=== PATIENT | female | born 1975 | race African-American/Black ===

== ENCOUNTER 2017-01-28 18:06 | Emergency (ER) | payer BC ==
[2017-01-28 18:16] VITALS: BP 185/98
[2017-01-28] MEDS ORDERED: DEXAMETHASONE 4 MG TABLET PO ONE (19:40)
[2017-01-28] MEDS ORDERED: FAMOTIDINE 20 MG TABLET PO ONE (19:40)
[2017-01-28] MEDS ORDERED: CLINDAMYCIN HCL 150 MG CAPSULE PO ONE (19:40)
[2017-01-28] MEDS ORDERED: ACETAMINOPHEN 325 MG TABLET PO ONE (19:43)
--- NOTE | 2017-01-28 19:44 | ER Document Report ---
HPI - HPI Patient complains to provider of: Insect bite Onset: Yesterday Onset/Duration: Worse Quality of pain: Achy Pain Level: 3 Context: Patient states that she was stung by an insect yesterday to the right forearm. Patient states area was just mildly red yesterday. Patient states gradually today arm has become slightly swollen with increased redness. Patient complains of itching to right forearm. Patient denies any fever. Patient states she does have a history of high blood pressure but her doctor had to adjust her medication so much that she stopped taking them and has been treating with homeopathic treatments at this time. Associated Symptoms: Other - Right forearm redness and swelling. denies: Nonproductive cough, Fever, Headache Exacerbated by: Denies Relieved by: Denies Similar symptoms previously: No Recently seen / treated by doctor: No - ROS ROS below otherwise negative: Yes Systems Reviewed and Negative: Yes All other systems reviewed and negative - CONSTITUTIONAL Constitutional: DENIES: Fever, Chills - NEURO Neurology: DENIES: Headache - CARDIOVASCULAR Cardiovascular: DENIES: Chest pain - RESPIRATORY Respiratory: DENIES: Trouble Breathing, Coughing - GASTROINTESTINAL Gastrointestinal: DENIES: Nausea - REPRODUCTIVE Reproductive: DENIES: : - MUSCULOSKELETAL Musculoskeletal: REPORTS: Extremity pain, Swelling - DERM Skin Color: Erythema Notes: Insect bite Past Medical History - General Information source: Patient - Social History Smoking Status: Never Smoker Frequency of alcohol use: None Drug Abuse: None Occupation: None Family History: None - Past Medical History Cardiac Medical History: Reports: Hx Hypertension Neurological Medical History: Reports: Hx Migraine Renal/ Medical History: Denies: Hx Peritoneal Dialysis Past Surgical History: Reports: Hx Section - x 3, Hx Orthopedic Surgery - back surgery-rods in back, Hx Tubal Ligation - Immunizations Hx Diphtheria, Pertussis, Tetanus Vaccination: Yes Vertical Provider Document - CONSTITUTIONAL Agree With Documented VS: Yes Exam Limitations: No Limitations General Appearance: WD/WN, No Apparent Distress - INFECTION CONTROL TRAVEL OUTSIDE OF THE [place] IN LAST 30 DAYS: No - HEENT HEENT: Atraumatic, Normal ENT Exam, Normocephalic Notes: No angioedema - NECK Neck: Normal Inspection, Supple. negative: Lymphadenopathy-Left, Lymphadenopathy-Right - RESPIRATORY Respiratory: Breath Sounds Normal, No Respiratory Distress O2 Sat by Pulse Oximetry: 99 - CARDIOVASCULAR Cardiovascular: Regular Rate, Regular Rhythm, No Murmur Pulses: Normal: Radial - BACK Back: Normal Inspection - MUSCULOSKELETAL/EXTREMETIES Musculoskeletal/Extremeties: MAEW, Edema - Right forearm swelling with erythema surrounding insect bite - NEURO Level of Consciousness: Awake, Alert, Appropriate Motor/Sensory: No Motor Deficit - DERM Integumentary: Warm, Dry. negative: Abscess Adult Front & Back Diagram: 1 - Patient with consistent with insect bite surrounded by erythema, no drainable abscess Course - Re-evaluation Re-evalutation: 01/28/17 19:45 The patient has been informed that they may have pre-hypertension or hypertension based on a blood pressure reading in the emergency department. I recommend that patient call the primary care provider listed on their discharge instructions or a physician of their choice by this week to arrange follow-up for further evaluation of possible pre-hypertension or hypertension. 01/28/17 19:53 Area of erythema marked with a skin marker, patient advised to return for any increased redness, pain, fever concerning new symptoms - Vital Signs Vital signs: Temp Pulse Resp BP Pulse Ox 99.4 F 107 H 24 H 185/98 H 99 01/28/17 18:15 01/28/17 18:15 01/28/17 18:15 01/28/17 18:15 01/28/17 18:15 Discharge - Discharge Clinical Impression: Hx of essential hypertension Insect bite Qualifiers: Encounter type: initial encounter Qualified Code(s): W57.XXXA - Bitten or stung by nonvenomous insect and other nonvenomous arthropods, initial encounter Cellulitis Qualifiers: Site of cellulitis: extremity Site of cellulitis of extremity: upper extremity Laterality: right Qualified Code(s): L03.113 - Cellulitis of right upper limb Condition: Stable Instructions: Clindamycin ([facility]), Use of Diphenhydramine, Steroid Medication, Swollen Insect Bite or Sting ([facility]) Additional Instructions: Return immediately for any new or worsening symptoms Followup with your primary care provider, call tomorrow to make a followup appointment. Your primary doctor may need to adjust your blood pressure medications, call tomorrow for an appointment You may continue to take Benadryl [id number] to help with your itching Return for any increased redness, fever, increased swelling, or any concerning symptoms Prescriptions: Clindamycin HCl [Cleocin Hcl] 300 mg PO QID #28 capsule Famotidine [Pepcid 20 mg Tablet] 20 mg PO BID #12 tablet Forms: Elevated Blood Pressure Referrals: [facility] [Provider Group] - Follow up tomorrow
== END 2017-01-28 19:55 | disposition home or self-care (01) ==
LOC: ER 18:06
DX: S50.861A Insect bite (nonvenomous) of right forearm, initial encounter (principal); L03.113 Cellulitis of right upper limb; W57.XXXA Bitten or stung by nonvenomous insect and other nonvenomous arthropods, initial encounter; I10 Essential (primary) hypertension
CPT/HCPCS: 99283

== ENCOUNTER 2017-04-16 14:23 | Emergency (ER) | payer BC ==
[2017-04-16 16:00] LABS: ABSOLUTE BASOPHILS # (AUTO) 0.1 10^3/uL (0.0-0.2); ABSOLUTE EOSINOPHILS # (AUTO) 0.1 10^3/uL (0.0-0.6); ABSOLUTE LYMPHOCYTES (AUTO) 2.3 10^3/uL (0.5-4.7); ABSOLUTE MONOCYTES (AUTO) 0.5 10^3/uL (0.1-1.4); ABSOLUTE NEUT (AUTO) 3.8 10^3/uL (1.7-8.2); BASOPHILS % (AUTO) 1.2 % (0-2); EOSINOPHILS % (AUTO) 1.8 % (0-6); HEMATOCRIT 37.5 % (36.0-47.0); HEMOGLOBIN 12.2 g/dL (12.0-15.5); HGB HCT DIFFERENCE -0.9; LYMPHOCYTES % (AUTO) 33.6 % (13-45); MEAN CORPUSCULAR HEMOGLOBIN 26.9 pg (27.0-33.4); MEAN CORPUSCULAR HGB CONC 32.4 g/dL (32.0-36.0); MEAN CORPUSCULAR VOLUME 83 fl (80-97); MONOCYTES % (AUTO) 7.7 % (3-13); RED BLOOD COUNT 4.52 10^6/uL (3.72-5.28); RED CELL DISTRIBUTION WIDTH 14.7 % (11.5-14.0); SEGMENTED NEUTROPHILS % (AUTO) 55.7 % (42-78); WHITE BLOOD COUNT 6.9 10^3/uL (4.0-10.5)
[2017-04-16 16:06] LABS: PROTHROMBIN TIME 13.2 SEC (11.4-15.4)
[2017-04-16 16:07] LABS: PARTIAL THROMBOPLASTIN TIME 27.6 SEC (23.5-35.8)
[2017-04-16 16:18] LABS: ANION GAP 11 (5-19); BLOOD UREA NITROGEN 6 mg/dL (7-20); CALCIUM 9.8 mg/dL (8.4-10.2); CARBON DIOXIDE 29 mmol/L (22-30); CHLORIDE 103 mmol/L (98-107); CREATININE RESULT 0.58 mg/dL (0.52-1.25); GLUCOSE 92 mg/dL (75-110); POTASSIUM 4.9 mmol/L (3.6-5.0); SODIUM 143.2 mmol/L (137-145)
--- NOTE | 2017-04-16 17:42 | RADIOLOGY REPORT (SQ) ---
EXAM DESCRIPTION: U/S NON-OB PELVIS TV W/O DOP COMPLETED DATE/TIME: 04/16/2017 5:29 pm REASON FOR STUDY: heavy bleeding COMPARISON: None. TECHNIQUE: Dynamic and static grayscale images acquired of the pelvis via transvaginal approach and recorded on PACS. Additional selected color Doppler and spectral images recorded. LIMITATIONS: None. FINDINGS: UTERUS: The uterus appears enlarged. Multiple hypoechoic foci are seen throughout the thi doris, consistent with leiomyoma. The largest measures 3.6 x 4.4 x 3.4 cm. ENDOMETRIAL STRIPE: Thickened to 1.75 cm. CERVIX: Incidental note is made of nabothian cysts. RIGHT OVARY: No abnormal masses. RIGHT OVARY DOPPLER: Normal arterial vascular flow without evidence for torsion. LEFT OVARY: Ovary not visualized. LEFT OVARY DOPPLER: Normal arterial vascular flow without evidence for torsion. FREE FLUID: None noted. OTHER: No other significant finding. MEASUREMENTS: UTERUS: 12.9 x 8.1 x 7.1 cm ENDOMETRIAL STRIPE: 1.75 cm RIGHT OVARY: 4.6 x 3.2 x 2.8 cm LEFT OVARY: Not visualized. IMPRESSION: Multi fibroid uterus. Normal right ovary. Nonvisualization of the left ovary. TECHNICAL DOCUMENTATION: JOB ID: [id number] [employer]- All Rights Reserved
--- NOTE | 2017-04-16 17:53 | ER Document Report ---
ED General - General Chief Complaint: Vaginal Bleeding Stated Complaint: VAGINAL BLEEDING Time Seen by Provider: 04/16/17 15:32 TRAVEL OUTSIDE OF THE [place] IN LAST 30 DAYS: No - HPI Patient complains to provider of: Vaginal bleeding Notes: Patient coming in for evaluation of elevated bleeding. Patient states on the initial cycle however now having heavy bleeding of clots. Patient states this has happened before has not been evaluated by INSURANCE CONSULTANT. Denies any fevers chills nausea vomiting diarrhea denies being - Related Data Allergies/Adverse Reactions: hydrocodone bitartrate [From Vicodin] Adverse Reaction (Verified 04/16/17 14:31) palpations ketorolac Adverse Reaction (Verified 04/16/17 14:31) metoclopramide [Metoclopramide] Adverse Reaction (Verified 04/16/17 14:31) Past Medical History - Social History Smoking Status: Former Smoker Chew tobacco use (# tins/day): No Frequency of alcohol use: None Drug Abuse: None Family History: Reviewed & Not Pertinent Patient has suicidal ideation: No Patient has homicidal ideation: No - Past Medical History Cardiac Medical History: Reports: Hx Hypertension Neurological Medical History: Reports: Hx Migraine Renal/ Medical History: Denies: Hx Peritoneal Dialysis Past Surgical History: Reports: Hx Section - x 3, Hx Orthopedic Surgery - back surgery-rods in back, Hx Tubal Ligation - Immunizations Hx Diphtheria, Pertussis, Tetanus Vaccination: Yes Review of Systems - Review of Systems Constitutional: No symptoms reported EENT: No symptoms reported Cardiovascular: No symptoms reported Respiratory: No symptoms reported Gastrointestinal: No symptoms reported Genitourinary: No symptoms reported Female Genitourinary: Heavy/abnormal periods Musculoskeletal: No symptoms reported Skin: No symptoms reported Hematologic/Lymphatic: No symptoms reported Neurological/Psychological: No symptoms reported Physical Exam - Vital signs Vitals: Temp Pulse Resp BP Pulse Ox 98.8 F 94 18 152/93 H 100 04/16/17 14:28 04/16/17 14:28 04/16/17 14:28 04/16/17 14:28 04/16/17 14:28 Interpretation: Normal - General General appearance: Appears well, Alert - HEENT Head: Normocephalic, Atraumatic Eyes: Normal Pupils: PERRL - Respiratory Respiratory status: No respiratory distress Chest status: Nontender Breath sounds: Normal Chest palpation: Normal - Cardiovascular Rhythm: Regular Heart sounds: Normal auscultation Murmur: No - Abdominal Inspection: Normal Distension: No distension Bowel sounds: Normal Tenderness: Nontender Organomegaly: No organomegaly - Back Back: Normal, Nontender - Extremities General upper extremity: Normal inspection, Nontender, Normal color, Normal ROM , Normal temperature General lower extremity: Normal inspection, Nontender, Normal color, Normal ROM , Normal temperature, Normal weight bearing. No: Marge's sign - Neurological Neuro grossly intact: Yes Cognition: Normal Orientation: AAOx4 Nasir Coma Scale Eye Opening: Spontaneous Nasir Coma Scale Verbal: Oriented [place] Coma Scale Motor: Obeys Commands [place] Coma Scale Total: 15 Speech: Normal Motor strength normal: LUE, RUE, LLE, RLE Sensory: Normal - Psychological Associated symptoms: Normal affect, Normal mood - Skin Skin Temperature: Warm Skin Moisture: Dry Skin Color: Normal Course - Re-evaluation Re-evalutation: 04/16/17 20:48 No signs of anemia ultrasound shows fibroid uterus more likely causing the patient's symptoms will discharge home follow-up with INSURANCE CONSULTANT. - Vital Signs Vital signs: Temp Pulse Resp BP Pulse Ox 98.6 F 84 20 173/93 H 100 04/16/17 18:20 04/16/17 18:20 04/16/17 18:20 04/16/17 18:20 04/16/17 18:20 - Laboratory Result Diagrams: 04/16/17 15:45 04/16/17 15:45 Laboratory results interpreted by me: 04/16/17 04/16/17 15:45 15:45 MCH 26.9 L RDW 14.7 H BUN 6 L Discharge - Discharge Clinical Impression: Fibroid uterus Qualifiers: Uterine leiomyoma location: unspecified location Qualified Code(s): D25.9 - Leiomyoma of uterus, unspecified Menorrhagia Qualifiers: Menorrahagia type: with regular cycle Qualified Code(s): N92.0 - Excessive and frequent menstruation with regular cycle Condition: Good Disposition: HOME, SELF-CARE Instructions: Menorrhagia ([facility]) Additional Instructions: Your ultrasound shows multiple fibroids which will cause you to have heavy painful periods. These are small benign excess gross of muscle tissue within the uterus itself they can come and go throughout time. Highly recommend following up with your primary care physician and your INSURANCE CONSULTANT for further evaluation and management. Prescriptions: Ibuprofen [Motrin 600 Mg Tablet] 600 mg PO TID #30 tablet Forms: Return to Work
[2017-04-16 18:22] VITALS: BP 173/93
== END 2017-04-16 18:20 | disposition home or self-care (01) ==
LOC: ER 14:23
DX: N92.0 Excessive and frequent menstruation with regular cycle (principal); D25.9 Leiomyoma of uterus, unspecified; N93.9 Abnormal uterine and vaginal bleeding, unspecified; Z87.891 Personal history of nicotine dependence
CPT/HCPCS: 36415; 76830; 80048; 84702; 85025; 85610; 85730; 99284

== ENCOUNTER 2017-08-15 17:28 | Emergency (ER) | payer BC ==
[2017-08-15] MEDS ORDERED: ASPIRIN 81 MG TABLET, CHEWABLE PO ONE (18:16)
--- NOTE | 2017-08-15 18:20 | ER Document Report ---
ED Medical Screen (RME) - General Chief Complaint: Breathing Difficulty Stated Complaint: BREATHING PROBLEMS Time Seen by Provider: 08/15/17 18:02 Mode of Arrival: Ambulatory Information source: Patient TRAVEL OUTSIDE OF THE [place] IN LAST 30 DAYS: No - HPI Patient complains to provider of: art bowling Notes: 08/15/17 18:18 Patient is here with complaints of left-sided chest pain that is pleuritic in nature. Is worse when she takes deep breath. She has had shortness of breath with this as well. Shortness of breath is with any sort of exertion. She denies any fever. She denies any recent long trips, surgeries, leg pain or leg swelling, history of DVT or PE, cancer, hormone use. She is a former smoker. She has a history of high blood pressure. She denies a history of high cholesterol, diabetes, CAD, drug use. Physical exam: No significant distress. She actually has pain when she takes a deep breath that she is splinting the left side of her chest. Lungs are clear and equal bilaterally. No leg swelling. An initial examination was made on the patient as part of the triage process, and it was determined a more comprehensive evaluation was necessary. Initial labs were ordered and patient was transferred to another provider in the ED who assumed care and finished evaluation and plan. - Related Data Allergies/Adverse Reactions: hydrocodone bitartrate [From Vicodin] Adverse Reaction (Verified 08/15/17 17:31) palpations ketorolac Adverse Reaction (Verified 08/15/17 17:31) metoclopramide [Metoclopramide] Adverse Reaction (Verified 08/15/17 17:31) Past Medical History - Past Medical History Cardiac Medical History: Reports: Hx Hypertension Neurological Medical History: Reports: Hx Migraine Renal/ Medical History: Denies: Hx Peritoneal Dialysis Past Surgical History: Reports: Hx Section - x 3, Hx Orthopedic Surgery - back surgery-rods in back, Hx Tubal Ligation - Immunizations Hx Diphtheria, Pertussis, Tetanus Vaccination: Yes Physical Exam - Vital signs Vitals: Temp Pulse Resp BP Pulse Ox 98.6 F 98 20 184/87 H 100 08/15/17 17:48 08/15/17 17:48 08/15/17 17:48 08/15/17 17:48 08/15/17 17:48 Course - Vital Signs Vital signs: Temp Pulse Resp BP Pulse Ox 98.6 F 98 20 184/87 H 100 08/15/17 17:48 08/15/17 17:48 08/15/17 17:48 08/15/17 17:48 08/15/17 17:48 Doctor's Discharge - Discharge Referrals: DEVENDRA CHEEMA PA [Primary Care Provider] - Follow up as needed
--- NOTE | 2017-08-15 18:45 | RADIOLOGY REPORT (SQ) ---
EXAM DESCRIPTION: CHEST SINGLE VIEW COMPLETED DATE/TIME: 08/15/2017 6:37 pm REASON FOR STUDY: left cp, sob COMPARISON: None. EXAM PARAMETERS: NUMBER OF VIEWS: One view. TECHNIQUE: Single frontal radiographic view of the chest acquired. RADIATION DOSE: NA LIMITATIONS: None. FINDINGS: LUNGS AND PLEURA: No opacities, masses or pneumothorax. No pleural effusion. MEDIASTINUM AND HILAR STRUCTURES: No masses. Contour normal. HEART AND VASCULAR STRUCTURES: Heart normal in size. Normal vasculature. BONES: No acute findings. HARDWARE: Rods are present in the thoracolumbar spine. OTHER: No other significant finding. IMPRESSION: NO ACUTE RADIOGRAPHIC FINDING IN THE CHEST. TECHNICAL DOCUMENTATION: JOB ID: [id number] [employer]- All Rights Reserved Reading location - IP/workstation name: [email or web address]
[2017-08-15 18:57] LABS: ABSOLUTE BASOPHILS # (AUTO) 0.1 10^3/uL (0.0-0.2); ABSOLUTE EOSINOPHILS # (AUTO) 0.1 10^3/uL (0.0-0.6); ABSOLUTE LYMPHOCYTES (AUTO) 2.5 10^3/uL (0.5-4.7); ABSOLUTE MONOCYTES (AUTO) 0.5 10^3/uL (0.1-1.4); ABSOLUTE NEUT (AUTO) 3.8 10^3/uL (1.7-8.2); BASOPHILS % (AUTO) 1.1 % (0-2); EOSINOPHILS % (AUTO) 0.9 % (0-6); HEMATOCRIT 36.2 % (36.0-47.0); HEMOGLOBIN 11.8 g/dL (12.0-15.5); LYMPHOCYTES % (AUTO) 35.7 % (13-45); MEAN CORPUSCULAR HEMOGLOBIN 25.9 pg (27.0-33.4); MEAN CORPUSCULAR HGB CONC 32.6 g/dL (32.0-36.0); MEAN CORPUSCULAR VOLUME 80 fl (80-97); MONOCYTES % (AUTO) 7.3 % (3-13); PLATELET COUNT 289 10^3/uL (150-450); RED BLOOD COUNT 4.54 10^6/uL (3.72-5.28); RED CELL DISTRIBUTION WIDTH 16.3 % (11.5-14.0); TOTAL CELLS COUNTED % (AUTO) 100 %; WHITE BLOOD COUNT 6.9 10^3/uL (4.0-10.5)
--- NOTE | 2017-08-15 19:05 | EKG REPORT ---
SEVERITY:- NORMAL ECG - SINUS RHYTHM : Confirmed by: Felice Hernandez MD 15-Aug-2017 19:04:14
[2017-08-15 19:17] LABS: ALANINE AMINOTRANSFERASE 23 U/L (9-52); ALBUMIN 4.4 g/dL (3.5-5.0); ALKALINE PHOSPHATASE 81 U/L (38-126); ANION GAP 9 (5-19); ASPARTATE AMINO TRANSFERASE 18 U/L (14-36); BILIRUBIN,DIRECT 0.1 mg/dL (0.0-0.4); BILIRUBIN,TOTAL 0.1 mg/dL (0.2-1.3); BLOOD UREA NITROGEN 7 mg/dL (7-20); CALCIUM 9.8 mg/dL (8.4-10.2); CARBON DIOXIDE 28 mmol/L (22-30); CHLORIDE 102 mmol/L (98-107); CREATINE KINASE 59 U/L (30-135); GLUCOSE 85 mg/dL (75-110); SODIUM 139.1 mmol/L (137-145); TOTAL PROTEIN 7.5 g/dL (6.3-8.2)
[2017-08-15 19:24] LABS: CREATINE KINASE MB 0.42 ng/mL (<4.55); NT PRO BNP 54 pg/mL (<125)
[2017-08-15 19:28] LABS: TROPONIN I < 0.012 ng/mL
[2017-08-15] MEDS ORDERED: LIDOCAINE 5% (700 MG) TRANSDERMAL ADH..PATCH TP ONE (20:35)
[2017-08-15] MEDS ORDERED: IBUPROFEN 600 MG TABLET PO ONE (20:36)
[2017-08-15] MEDS ORDERED: ACETAMINOPHEN 325 MG TABLET PO ONE (20:36)
--- NOTE | 2017-08-15 20:37 | ER Document Report ---
ED General - General Chief Complaint: Breathing Difficulty Stated Complaint: BREATHING PROBLEMS Time Seen by Provider: 08/15/17 18:02 Mode of Arrival: Ambulatory Notes: Patient is a 41-year-old female with a past medical history of hypertension that she states she treats with "natural methods" who presents with 2 days of shortness of breath and left-sided chest discomfort. Patient describes the chest discomfort as being a stabbing, aching pain to her left lower ribs that wraps around to her upper mid chest. She states that this pain is worsened by breathing, moving and coughing. Nothing improves the pain. She denies any history of similar symptoms in the past. She denies any hemoptysis, radiation of the pain, syncope, vomiting, or unilateral leg swelling. She denies any use of estrogen, chemotherapy, and has no history of DVT or pulmonary embolus. She has not seen her primary care doctor regarding today's concerns. Symptoms have been overall unchanged since onset. TRAVEL OUTSIDE OF THE [place] IN LAST 30 DAYS: No - Related Data Allergies/Adverse Reactions: hydrocodone bitartrate [From Vicodin] Adverse Reaction (Verified 08/15/17 17:31) palpations ketorolac Adverse Reaction (Verified 08/15/17 17:31) metoclopramide [Metoclopramide] Adverse Reaction (Verified 08/15/17 17:31) Past Medical History - General Information source: Patient - Social History Smoking Status: Former Smoker Chew tobacco use (# tins/day): No Frequency of alcohol use: None Drug Abuse: None Lives with: Alone Family History: Reviewed & Not Pertinent Patient has suicidal ideation: No Patient has homicidal ideation: No - Past Medical History Cardiac Medical History: Reports: Hx Hypertension Neurological Medical History: Reports: Hx Migraine Renal/ Medical History: Denies: Hx Peritoneal Dialysis Past Surgical History: Reports: Hx Section - x 3, Hx Orthopedic Surgery - back surgery-rods in back, Hx Tubal Ligation - Immunizations Hx Diphtheria, Pertussis, Tetanus Vaccination: Yes Review of Systems - Review of Systems Notes: Constitutional: Negative for fever. HENT: Negative for sore throat. Eyes: Negative for visual changes. Cardiovascular: Positive for chest pain. Respiratory: Positive for shortness of breath. Gastrointestinal: Negative for abdominal pain, vomiting or diarrhea. Genitourinary: Negative for dysuria. Musculoskeletal: Negative for back pain. Skin: Negative for rash. Neurological: Negative for headaches, weakness or numbness. 10 point ROS negative except as marked above and in HPI. Physical Exam - Vital signs Vitals: Temp Pulse Resp BP Pulse Ox 98.6 F 98 20 184/87 H 100 08/15/17 17:48 08/15/17 17:48 08/15/17 17:48 08/15/17 17:48 08/15/17 17:48 Interpretation: Hypertensive Notes: PHYSICAL EXAMINATION: GENERAL: Well-appearing, well-nourished and in no acute distress. HEAD: Atraumatic, normocephalic. EYES: Pupils equal round and reactive to light, extraocular movements intact, sclera anicteric, conjunctiva are normal. ENT: nares patent, oropharynx clear without exudates. Moist mucous membranes. NECK: Normal range of motion, supple without lymphadenopathy LUNGS: Intermittently breathing quickly but does normalize her respiratory rate during conversation. Breath sounds clear to auscultation bilaterally and equal. No wheezes rales or rhonchi. HEART: Regular rate and rhythm without murmurs ABDOMEN: Soft, nontender, normoactive bowel sounds. No guarding, no rebound. No masses appreciated. EXTREMITIES: Normal range of motion, no pitting or edema. No cyanosis. NEUROLOGICAL: No focal neurological deficits. Moves all extremities spontaneously and on command. PSYCH: Mildly anxious SKIN: Warm, Dry, normal turgor, no rashes or lesions noted. Course - Re-evaluation Re-evalutation: 08/15/17 20:49 Presentation of lower left rib discomfort and chest pain otherwise nontoxic appearing patient. Low clinical suspicion for ACS given clinical history, exam, EKG without ST elevations or depressions, and negative initial troponin. Symptoms have been ongoing for several days making serial troponins not indicated. HEART score less than or equal to 3. PE also seems unlikely given absence of tachycardia. However, given the patient's report pleuritic pain with associated shortness of breath a d-dimer was sent. This has returned within normal limits. Patient is PERC criteria negative. CXR without evidence of pneumothorax or pneumonia. No widened mediastinum. Aortic dissection also seems unlikely given history, symmetric pulses, CXR, and vitals. Patient is ambulated without any difficulty or hypoxia on pulse oximetry. I have explained to the patient that the exact etiology of her symptoms is uncertain but may be secondary to inflammation of her rib muscles. At this time will discharge with return precautions and follow-up recommendations. Verbal discharge instructions given a the bedside and opportunity for questions given. Medication warnings reviewed. Patient is in agreement with this plan and has verbalized understanding of return precautions and the need for primary care follow-up in the next 24-72 hours. - Vital Signs Vital signs: Temp Pulse Resp BP Pulse Ox 98.6 F 98 35 H 178/113 H 100 08/15/17 17:48 08/15/17 17:48 08/15/17 20:01 08/15/17 20:01 08/15/17 20:01 - Laboratory Result Diagrams: 08/15/17 18:42 08/15/17 18:42 Laboratory results interpreted by me: 08/15/17 08/15/17 18:42 18:42 Hgb 11.8 L MCH 25.9 L RDW 16.3 H Creatinine 0.49 L Total Bilirubin 0.1 L - Diagnostic Test Radiology reviewed: Image reviewed, Reports reviewed Radiology results interpreted by me: 08/15/17 20:50 Chest x-ray: No acute infiltrate or pneumothorax - EKG Interpretation by Me Additional EKG results interpreted by me: 08/15/17 20:51 Normal sinus rhythm. Rate 84. No ST elevations or depressions. QTC is 469. Discharge - Discharge Clinical Impression: Pleuritic pain, Rib pain on left side, Essential hypertension, Shortness of breath Condition: Good Disposition: HOME, SELF-CARE Additional Instructions: Your chest wall pain is due to inflammation of the muscles between ribs. This pain can last for up to 6 weeks. It is very important that you continue to take purposeful deep breaths. For your pain: Continue to take ibuprofen 600 mg every 6 hours or Tylenol 1000 mg every 6 hours. Apply local lidocaine to the area per bottle instructions. There is a product sold [id number] called "Aspercreme with lidocaine" that you can use for this purpose. Please follow- up with her primary care doctor in the next 2-3 days. Return to the emergency department immediately if you develop worsening shortness of breath, increased pain, begin coughing blood, pass out, or have any other symptoms that are worrisome to you. Forms: Return to Work Referrals: DEVENDRA CHEEMA PA [Primary Care Provider] - Follow up as needed
[2017-08-15 21:11] VITALS: BP 178/113
== END 2017-08-15 21:11 | disposition home or self-care (01) ==
LOC: ER 17:28
DX: R07.81 Pleurodynia (principal); I10 Essential (primary) hypertension; R06.02 Shortness of breath; Z87.891 Personal history of nicotine dependence
CPT/HCPCS: 36415; 71045; 80053; 82550; 82553; 83880; 84484; 85025; 85379; 93005; 93010; 99285

== ENCOUNTER 2017-10-30 12:21 | Emergency (ER) | payer BC ==
[2017-10-30 12:27] VITALS: BP 171/95
--- NOTE | 2017-10-30 12:29 | ER Document Report ---
HPI - HPI Patient complains to provider of: Mosquito bites Onset: Yesterday Onset/Duration: Gradual Pain Level: 3 Context: 42-year-old female complaining of increased erythema to mosquito bites that she sustained last night. Sometimes they become inflamed like this. Has been taking Benadryl for the itch. No fever or chills. - REPRODUCTIVE Reproductive: DENIES: : Past Medical History - General Information source: Patient - Social History Smoking Status: Unknown if Ever Smoked Frequency of alcohol use: None Drug Abuse: None Lives with: Family Family History: Reviewed & Not Pertinent - Past Medical History Cardiac Medical History: Reports: Hx Hypertension Neurological Medical History: Reports: Hx Migraine Renal/ Medical History: Denies: Hx Peritoneal Dialysis Past Surgical History: Reports: Hx Section - x 3, Hx Orthopedic Surgery - back surgery-rods in back, Hx Tubal Ligation - Immunizations Hx Diphtheria, Pertussis, Tetanus Vaccination: Yes Vertical Provider Document - CONSTITUTIONAL Agree With Documented VS: Yes Exam Limitations: No Limitations General Appearance: No Apparent Distress - INFECTION CONTROL TRAVEL OUTSIDE OF THE [place] IN LAST 30 DAYS: No - HEENT HEENT: Normocephalic - NECK Neck: Supple - RESPIRATORY Respiratory: Breath Sounds Normal, No Respiratory Distress - CARDIOVASCULAR Cardiovascular: Regular Rate, Regular Rhythm - MUSCULOSKELETAL/EXTREMETIES Musculoskeletal/Extremeties: MAEW - NEURO Level of Consciousness: Awake, Alert - DERM Notes: red inflamed indurated mosqito bites anterior upper chest, arms, no drainage but erythema extended past pen ward right elbow Course - Vital Signs Vital signs: Temp Pulse Resp BP Pulse Ox 99.1 F 99 20 171/95 H 97 10/30/17 12:28 10/30/17 12:28 10/30/17 12:28 10/30/17 12:28 10/30/17 12:28 Discharge - Discharge Clinical Impression: Inflamed mosquito bites, Local insect bite infection Condition: Good Disposition: HOME, SELF-CARE Instructions: Use of Diphenhydramine, Insect Sting ([facility]), Swollen Insect Bite or Sting ([facility]) Additional Instructions: Cool compress Benadryl cream for the itch Antibiotics in case this is infection Return to the emergency room for any worsening of symptoms Prescriptions: Cephalexin Monohydrate [Keflex 500 mg Capsule] 500 mg PO QID #28 capsule Referrals: DEVENDRA CHEEMA PA [PHYSICIAN CAR SCRUBBER] - Follow up tomorrow
== END 2017-10-30 12:55 | disposition home or self-care (01) ==
LOC: ER 12:21
DX: S20.369A Insect bite (nonvenomous) of unspecified front wall of thorax, initial encounter (principal); S40.869A Insect bite (nonvenomous) of unspecified upper arm, initial encounter; L08.9 Local infection of the skin and subcutaneous tissue, unspecified; W57.XXXA Bitten or stung by nonvenomous insect and other nonvenomous arthropods, initial encounter; I10 Essential (primary) hypertension
CPT/HCPCS: 99281

== ENCOUNTER 2018-01-22 11:51 | Emergency (ER) | payer BC ==
[2018-01-22] MEDS ORDERED: CEPHALEXIN 500 MG CAPSULE PO ONE (13:13)
[2018-01-22] MEDS ORDERED: HYDROXYZINE PAMOATE 25 MG CAPSULE (4 CAP/ER DISP) PO SCH (13:15)
--- NOTE | 2018-01-22 13:17 | ER Document Report ---
ED General - General Chief Complaint: Insect Bite Stated Complaint: INSECT BITE Time Seen by Provider: 01/22/18 13:04 TRAVEL OUTSIDE OF THE [place] IN LAST 30 DAYS: No - HPI Patient complains to provider of: Infected insect bite Notes: Patient coming with insect bites to the left arm ongoing for 2 days patient states normally she swells however swelling increase and no relief of Benadryl she has been taking at home. Patient denies any fever chills nausea vomiting diarrhea unaware of the insect that bit her. - Related Data Allergies/Adverse Reactions: hydrocodone bitartrate [From Vicodin] Adverse Reaction (Verified 10/30/17 12:22) palpations ketorolac Adverse Reaction (Verified 10/30/17 12:22) metoclopramide [Metoclopramide] Adverse Reaction (Verified 10/30/17 12:22) Past Medical History - Social History Smoking Status: Current Every Day Smoker Family History: Reviewed & Not Pertinent - Past Medical History Cardiac Medical History: Reports: Hx Hypertension Neurological Medical History: Reports: Hx Migraine Renal/ Medical History: Denies: Hx Peritoneal Dialysis Past Surgical History: Reports: Hx Section - x 3, Hx Orthopedic Surgery - back surgery-rods in back, Hx Tubal Ligation - Immunizations Hx Diphtheria, Pertussis, Tetanus Vaccination: Yes Review of Systems - Review of Systems Constitutional: Other - Small insect bites EENT: No symptoms reported Cardiovascular: No symptoms reported Respiratory: No symptoms reported Gastrointestinal: No symptoms reported Genitourinary: No symptoms reported Female Genitourinary: No symptoms reported Musculoskeletal: No symptoms reported Skin: No symptoms reported Hematologic/Lymphatic: No symptoms reported Neurological/Psychological: No symptoms reported Physical Exam - Vital signs Vitals: Temp Pulse Resp BP Pulse Ox 98.3 F 107 H 16 182/105 H 100 01/22/18 11:56 01/22/18 11:56 01/22/18 11:56 01/22/18 11:56 01/22/18 11:56 Interpretation: Normal - General General appearance: Appears well, Alert - HEENT Head: Normocephalic, Atraumatic Eyes: Normal Pupils: PERRL - Respiratory Respiratory status: No respiratory distress Chest status: Nontender Breath sounds: Normal Chest palpation: Normal - Cardiovascular Rhythm: Regular Heart sounds: Normal auscultation Murmur: No - Abdominal Inspection: Normal Distension: No distension Bowel sounds: Normal Tenderness: Nontender Organomegaly: No organomegaly - Back Back: Normal, Nontender - Extremities General upper extremity: Nontender, Normal color, Normal ROM, Normal temperature. No: Normal inspection - Patient has extensive erythema on the lateral portion of the left arm with obvious insect bites to the distal portion of the deltoid muscle. Patient does have some induration at this area approximately 4 cm x 4 cm which streaking going beyond the shoulder consistent with a cellulitis the area is warm to touch General lower extremity: Normal inspection, Nontender, Normal color, Normal ROM , Normal temperature, Normal weight bearing. No: Marge's sign - Neurological Neuro grossly intact: Yes Cognition: Normal Orientation: AAOx4 Leona Coma Scale Eye Opening: Spontaneous Leona Coma Scale Verbal: Oriented Leona Coma Scale Motor: Obeys Commands Nasir Coma Scale Total: 15 Speech: Normal Motor strength normal: LUE, RUE, LLE, RLE Sensory: Normal - Psychological Associated symptoms: Normal affect, Normal mood - Skin Skin Temperature: Warm Skin Moisture: Dry Skin Color: Normal Course - Re-evaluation Re-evalutation: 01/22/18 20:24 Concern for developing cellulitis due to underlying bug bites. Patient will be started on antibiotics. Area was marked. Patient will be discharged on follow- up primary care physician will also offer the patient Vistaril to help out with the itching - Vital Signs Vital signs: Temp Pulse Resp BP Pulse Ox 98.4 F 100 20 179/99 H 97 01/22/18 13:25 01/22/18 13:25 01/22/18 13:25 01/22/18 13:25 01/22/18 13:25 Discharge - Discharge Clinical Impression: Cellulitis Qualifiers: Site of cellulitis: extremity Site of cellulitis of extremity: upper extremity Laterality: left Qualified Code(s): L03.114 - Cellulitis of left upper limb Infected insect bite Qualifiers: Encounter type: initial encounter Qualified Code(s): W57.XXXA - Bitten or stung by nonvenomous insect and other nonvenomous arthropods, initial encounter Condition: Good Disposition: HOME, SELF-CARE Instructions: Cellulitis ([facility]), Swollen Insect Bite or Sting ([facility]) Additional Instructions: Your evaluation today is concerning for the development of a cellulitis or infection due to recent insect bites. Surgical antibiotic of Keflex to help out with the infection. He may try the Vistaril given to you here in the ER to help out with any itching and swelling. Please take 1 tablet every 6 hours for itching and swelling. Please be aware this may make you sleepy and may make you fall asleep. Follow-up with your primary care physician or return to the ER if you feel like her symptoms are worsening. Please take all of her antibiotics Prescriptions: Cephalexin Monohydrate [Keflex 500 mg Capsule] 500 mg PO Q6H 7 Days capsule Hydroxyzine Pamoate [Vistaril 25 mg Capsule] 25 mg PO Q6 PRN #30 capsule PRN Reason: Forms: Return to Work
[2018-01-22 13:54] VITALS: BP 179/99
== END 2018-01-22 13:30 | disposition home or self-care (01) ==
LOC: ER 11:51
DX: S40.862A Insect bite (nonvenomous) of left upper arm, initial encounter (principal); L03.114 Cellulitis of left upper limb; W57.XXXA Bitten or stung by nonvenomous insect and other nonvenomous arthropods, initial encounter; F17.200 Nicotine dependence, unspecified, uncomplicated; I10 Essential (primary) hypertension
CPT/HCPCS: 99281; J3490

== ENCOUNTER 2018-04-03 21:12 | Emergency (ER) | payer BC ==
--- NOTE | 2018-04-03 23:28 | ER Document Report ---
ED Medical Screen (RME) - General Chief Complaint: Breathing Difficulty Stated Complaint: CHEST PAIN Time Seen by Provider: 04/03/18 23:21 Notes: Patient is a 42-year-old female who presents to the emergency department with difficulty breathing. This started Tuesday and she states that they are doing some work in her apartment building where they found asbestos. She describes her pain as chest tightness. Attempted to use her inhaler, but it was not working. She has a past medical history of hypertension. She admits to having anxiety, but states this does not feel like her normal anxiety attack. Denies smoking, alcohol, or illicit drug use. TRAVEL OUTSIDE OF THE [place] IN LAST 30 DAYS: No - Related Data Allergies/Adverse Reactions: hydrocodone bitartrate [From Vicodin] Adverse Reaction (Verified 10/30/17 12:22) palpations ketorolac Adverse Reaction (Verified 10/30/17 12:22) metoclopramide [Metoclopramide] Adverse Reaction (Verified 10/30/17 12:22) Past Medical History - Past Medical History Cardiac Medical History: Reports: Hx Hypertension Neurological Medical History: Reports: Hx Migraine Renal/ Medical History: Denies: Hx Peritoneal Dialysis Past Surgical History: Reports: Hx Section - x 3, Hx Orthopedic Surgery - back surgery-rods in back, Hx Tubal Ligation - Immunizations Hx Diphtheria, Pertussis, Tetanus Vaccination: Yes Physical Exam - Vital signs Vitals: Temp Pulse Resp BP Pulse Ox 98.5 F 94 24 H 180/110 H 100 04/03/18 22:05 04/03/18 22:05 04/03/18 22:05 04/03/18 22:05 04/03/18 22:05 - Respiratory Respiratory status: Labored Breath sounds: Normal - Cardiovascular Rhythm: Regular Heart sounds: Normal auscultation Course - Vital Signs Vital signs: Temp Pulse Resp BP Pulse Ox 98.5 F 94 24 H 180/110 H 100 04/03/18 22:05 04/03/18 22:05 04/03/18 22:05 04/03/18 22:05 04/03/18 22:05
--- NOTE | 2018-04-04 00:49 | ER Document Report ---
ED General - General Chief Complaint: Breathing Difficulty Stated Complaint: CHEST PAIN Time Seen by Provider: 04/03/18 23:21 Notes: Patient is a pleasant 42-year-old female presents with complaint sensation of tightness in her chest. Says she has a history of wheezing at times. She says that she has an inhaler that she has been using at home because she has had a cough for a week. I asked her why she has inhaler and she said "it was given to me because of my anxiety". She does not smoke. She denies history of COPD. She denies history of asthma. She says that she feels that she has been coughing her chest is tight because they are working on her building. She said they been having to remove asbestos. She denies actual pain in her chest. She says she just has tightness. Says tightness because she is short of breath and coughing. No fevers. No leg pain or leg swelling. TRAVEL OUTSIDE OF THE [place] IN LAST 30 DAYS: No - Related Data Allergies/Adverse Reactions: hydrocodone bitartrate [From Vicodin] Adverse Reaction (Verified 10/30/17 12:22) palpations ketorolac Adverse Reaction (Verified 10/30/17 12:22) metoclopramide [Metoclopramide] Adverse Reaction (Verified 10/30/17 12:22) Past Medical History - Social History Smoking Status: Never Smoker Frequency of alcohol use: None Drug Abuse: None Family History: Reviewed & Not Pertinent - Past Medical History Cardiac Medical History: Reports: Hx Hypertension Neurological Medical History: Reports: Hx Migraine Renal/ Medical History: Denies: Hx Peritoneal Dialysis Past Surgical History: Reports: Hx Section - x 3, Hx Orthopedic Surgery - back surgery-rods in back, Hx Tubal Ligation - Immunizations Hx Diphtheria, Pertussis, Tetanus Vaccination: Yes Review of Systems - Review of Systems Notes: My Normal Review Basic REVIEW OF SYSTEMS: CONSTITUTIONAL : Denies fever, chills, or sweats. EENT: Denies eye, ear, throat, or mouth pain or symptoms. Denies nasal or sinus congestion. CARDIOVASCULAR: Denies chest pain. RESPIRATORY: recurrent cough. GASTROINTESTINAL: Denies abdominal pain. Denies nausea, vomiting, or diarrhea. Denies constipation. Last BM: MUSCULOSKELETAL: Denies neck or back pain or joint pain or swelling. SKIN: Denies rash or skin lesions. NEUROLOGICAL: Denies altered mental status or loss of consciousness. Denies headache. Denies weakness or paralysis or loss of use of either side. Denies problems with gait or speech. Denies sensory or motor loss. ALL OTHER SYSTEMS REVIEWED AND NEGATIVE. Physical Exam - Vital signs Vitals: Temp Pulse Resp BP Pulse Ox 98.5 F 94 24 H 180/110 H 100 04/03/18 22:05 04/03/18 22:05 04/03/18 22:05 04/03/18 22:05 04/03/18 22:05 - Notes Notes: General Appearance: Well nourished, alert, cooperative, no acute distress, no obvious discomfort. Well-appearing. No distress. Vitals: reviewed, See vital signs table. Head: no swelling or tenderness to the head Eyes: PERRL, EOMI, Conjuctiva clear Mouth: No decreasd moisture Throat: No tonsillar inflammation, No airway obstruction, No lymphadenopathy Neck: Supple, no neck tenderness, No thyromegaly Lungs: Very slight wheezing in the right base, No rales, No rhonci, No accessory muscle use, good air exchange bilaterally. Heart: Normal rate, Regular rythm, No murmur, no rub Abdomen: Normal BS, soft, No rigidity, No abdominal tenderness, No guarding, no rebound, no abdominal masses, no organomegaly Extremities: strength 5/5 in all extremities, good pulses in all extremities, no swelling or tenderness in the extremities, no edema. Skin: warm, dry, appropriate color, no rash Neuro: speech clear, oriented x 3, normal affect, responds appropriately to questions. Course - Re-evaluation Re-evalutation: 04/04/18 06:59 Patient looks well. She is not short of breath appearing. Her lung eastman has had very slight wheezing that cleared with one breathing treatment. I will she has inhaler at home. Encouraged to only use inhaler when she is short of breath or truly wheezing. I encouraged her to try and stay a different location as she thinks a lot of it is attributing to the fact that they are doing work on her building. Encourage return to ER if she has worsening difficulty breathing fevers or feels unwell. Patient agrees with plan will be discharged home. I initially offered to give the patient prednisone. Patient said she preferred to have like a Decadron shot. Just prior to discharge the patient refused a Decadron shot and requested to be discharged home. Dictation of this chart was performed using voice recognition software; therefore, there may be some unintended grammatical errors. - Vital Signs Vital signs: Temp Pulse Resp BP Pulse Ox 98.5 F 94 29 H 186/105 H 100 04/03/18 22:05 04/03/18 22:05 04/04/18 02:01 04/04/18 02:01 04/04/18 02:01 - Laboratory Result Diagrams: 04/04/18 01:10 04/04/18 01:10 Laboratory results interpreted by me: 04/04/18 04/04/18 01:10 01:10 MCH 26.3 L RDW 19.3 H Seg Neutrophils % 41.2 L Lymphocytes % 46.6 H BUN 4 L - EKG Interpretation by Me Additional EKG results interpreted by me: 04/04/18 00:49 EKG is reviewed and interpreted by me. EKG shows sinus rhythm with a rate of [address] segment elevation or depression. No ischemic T wave inversions. UT interval, QRS duration within normal range. QT interval is slightly prolonged. Old EKG for comparison is from August 15, 2017. Discharge - Discharge Clinical Impression: Dyspnea Qualifiers: Dyspnea type: unspecified Qualified Code(s): R06.00 - Dyspnea, unspecified Condition: Good Disposition: HOME, SELF-CARE Additional Instructions: Please return to the ER immediately if you have fevers, worsening difficulty breathing, or feel that you are worsening. please use your inhaler as prescribed. Please try to find a different place to stay until they are don working on your building. Referrals: HUGO REYES MD [Primary Care Provider] - 04/06/18
--- NOTE | 2018-04-04 00:56 | RADIOLOGY REPORT (SQ) ---
EXAM DESCRIPTION: XR CHEST 1 VIEW COMPLETED DATE/TME: 04/03/2018 23:29 CLINICAL HISTORY: 42 years, Female, difficulty breathing COMPARISON: None. NUMBER OF VIEWS: 1 TECHNIQUE: Frontal view the chest LIMITATIONS: None. FINDINGS: The heart size is normal. Fixation rods of the thoracolumbar spine. Lungs are clear. No pneumothorax IMPRESSION: No acute cardiopulmonary process 2010 [facility] [employer]- All Rights Reserved
[2018-04-04 01:21] LABS: ABSOLUTE BASOPHILS # (AUTO) 0.1 10^3/uL (0.0-0.2); ABSOLUTE EOSINOPHILS # (AUTO) 0.1 10^3/uL (0.0-0.6); ABSOLUTE LYMPHOCYTES (AUTO) 2.5 10^3/uL (0.5-4.7); ABSOLUTE MONOCYTES (AUTO) 0.5 10^3/uL (0.1-1.4); ABSOLUTE NEUT (AUTO) 2.2 10^3/uL (1.7-8.2); BASOPHILS % (AUTO) 1.1 % (0-2); EOSINOPHILS % (AUTO) 1.2 % (0-6); HEMATOCRIT 37.7 % (36.0-47.0); HEMOGLOBIN 12.4 g/dL (12.0-15.5); LYMPHOCYTES % (AUTO) 46.6 % (13-45); MEAN CORPUSCULAR HEMOGLOBIN 26.3 pg (27.0-33.4); MEAN CORPUSCULAR VOLUME 80 fl (80-97); MONOCYTES % (AUTO) 9.9 % (3-13); PLATELET COUNT 272 10^3/uL (150-450); RED BLOOD COUNT 4.73 10^6/uL (3.72-5.28); RED CELL DISTRIBUTION WIDTH 19.3 % (11.5-14.0); SEGMENTED NEUTROPHILS % (AUTO) 41.2 % (42-78); TOTAL CELLS COUNTED % (AUTO) 100 %; WHITE BLOOD COUNT 5.4 10^3/uL (4.0-10.5)
[2018-04-04] MEDS ORDERED: ALBUTEROL SULFATE 0.083% NEB 2.5 MG/3 ML AMPUL NEB ONE (01:29)
[2018-04-04 01:32] LABS: ALANINE AMINOTRANSFERASE 11 U/L (9-52); ALBUMIN 3.8 g/dL (3.5-5.0); ALKALINE PHOSPHATASE 78 U/L (38-126); ANION GAP 8 (5-19); ASPARTATE AMINO TRANSFERASE 19 U/L (14-36); BILIRUBIN,DIRECT 0.2 mg/dL (0.0-0.4); BILIRUBIN,TOTAL 0.4 mg/dL (0.2-1.3); BLOOD UREA NITROGEN 4 mg/dL (7-20); CALCIUM 8.9 mg/dL (8.4-10.2); CARBON DIOXIDE 28 mmol/L (22-30); CHLORIDE 104 mmol/L (98-107); GLUCOSE 89 mg/dL (75-110); POTASSIUM 4.3 mmol/L (3.6-5.0); SODIUM 140.2 mmol/L (137-145)
[2018-04-04 02:17] VITALS: BP 186/105
[2018-04-04] MEDS ORDERED: DEXAMETHASONE SOD PHOS INJ 10 MG/1 ML VIAL IM ONE (02:48)
--- NOTE | 2018-04-04 10:02 | EKG REPORT ---
SEVERITY:- NORMAL ECG - SINUS RHYTHM : Confirmed by: Dwight Espinosa 04-Apr-2018 10:01:04
== END 2018-04-04 03:35 | disposition home or self-care (01) ==
LOC: ER 21:12
DX: R06.00 Dyspnea, unspecified (principal); R07.9 Chest pain, unspecified; I10 Essential (primary) hypertension; Z88.6 Allergy status to analgesic agent; Z98.51 Tubal ligation status
CPT/HCPCS: 36415; 71045; 80053; 84484; 85025; 93005; 93010; 94640; 99285

== ENCOUNTER 2018-04-30 00:50 | Emergency (ER) | payer BC ==
[2018-04-30 01:41] LABS: HEMATOCRIT 35.2 % (36.0-47.0); HEMOGLOBIN 11.7 g/dL (12.0-15.5); MEAN CORPUSCULAR HEMOGLOBIN 26.5 pg (27.0-33.4); MEAN CORPUSCULAR HGB CONC 33.2 g/dL (32.0-36.0); MEAN CORPUSCULAR VOLUME 80 fl (80-97); PLATELET COUNT 316 10^3/uL (150-450); RED CELL DISTRIBUTION WIDTH 18.5 % (11.5-14.0)
[2018-04-30 02:00] LABS: ANION GAP 10 (5-19); BLOOD UREA NITROGEN 7 mg/dL (7-20); CALCIUM 9.5 mg/dL (8.4-10.2); CARBON DIOXIDE 29 mmol/L (22-30); CHLORIDE 104 mmol/L (98-107); GLUCOSE 117 mg/dL (75-110); POTASSIUM 4.6 mmol/L (3.6-5.0); SODIUM 143.2 mmol/L (137-145)
--- NOTE | 2018-04-30 02:23 | ER Document Report ---
ED General - General Chief Complaint: Vaginal Bleeding Stated Complaint: HEAVY PERIOD, LOW IRON CONCERNS Time Seen by Provider: 04/30/18 01:22 Notes: Patient is a 42-year-old female with a past medical history of essential hypertension, iron deficiency anemia, uterine fibroids, who presents with 10 days of vaginal bleeding. Patient states that she has felt somewhat weak and fatigued since the onset of bleeding, contacted the nursing line and was instructed to come to the emergency developed significant anemia. States that she is using approximately 8-10 pads daily. She states that she has had similar bleeding patterns of the past several months and has been following with RESPOOLER. She has been placed on hormonal control but this is not resolved her symptoms. She also notes that her RESPOOLER has advised fibroid removal versus possible hysterectomy but she has declined these procedures to date. She denies any focal abdominal pain, fever, vomiting or syncope. Denies any current heavy vaginal bleeding. Nothing seems to improve or worsen her symptoms. TRAVEL OUTSIDE OF THE [place] IN LAST 30 DAYS: No - Related Data Allergies/Adverse Reactions: hydrocodone bitartrate [From Vicodin] Adverse Reaction (Verified 04/30/18 02:05) palpations ketorolac Adverse Reaction (Verified 04/30/18 02:05) metoclopramide [Metoclopramide] Adverse Reaction (Verified 04/30/18 02:05) Past Medical History - General Information source: Patient - Social History Smoking Status: Never Smoker Frequency of alcohol use: None Drug Abuse: None Lives with: Family Family History: Reviewed & Not Pertinent Patient has suicidal ideation: No Patient has homicidal ideation: No - Past Medical History Cardiac Medical History: Reports: Hx Hypertension Neurological Medical History: Reports: Hx Migraine Renal/ Medical History: Denies: Hx Peritoneal Dialysis Past Surgical History: Reports: Hx Section - x 3, Hx Orthopedic Surgery - back surgery-rods in back, Hx Tubal Ligation - Immunizations Hx Diphtheria, Pertussis, Tetanus Vaccination: Yes Review of Systems - Review of Systems Notes: Constitutional: Negative for fever. Positive for generalized fatigue HENT: Negative for sore throat. Eyes: Negative for visual changes. Cardiovascular: Negative for chest pain. Respiratory: Negative for shortness of breath. Gastrointestinal: Negative for abdominal pain, vomiting or diarrhea. Genitourinary: Positive for vaginal bleeding Musculoskeletal: Negative for back pain. Skin: Negative for rash. Neurological: Negative for headaches, weakness or numbness. 10 point ROS negative except as marked above and in HPI. Physical Exam - Vital signs Vitals: Temp Pulse Resp BP Pulse Ox 98.2 F 98 16 190/103 H 99 04/30/18 00:57 04/30/18 00:57 04/30/18 00:57 04/30/18 00:57 04/30/18 00:57 Interpretation: Hypertensive Notes: PHYSICAL EXAMINATION: GENERAL: Well-appearing, well-nourished and in no acute distress. HEAD: Atraumatic, normocephalic. EYES: Pupils equal round and reactive to light, extraocular movements intact, sclera anicteric, conjunctiva are normal. ENT: nares patent, oropharynx clear without exudates. Moist mucous membranes. NECK: Normal range of motion, supple without lymphadenopathy LUNGS: Breath sounds clear to auscultation bilaterally and equal. No wheezes rales or rhonchi. HEART: Regular rate and rhythm without murmurs ABDOMEN: Soft, nontender, normoactive bowel sounds. No guarding, no rebound. No masses appreciated. EXTREMITIES: Normal range of motion, no pitting or edema. No cyanosis. NEUROLOGICAL: No focal neurological deficits. Moves all extremities spontaneously and on command. PSYCH: Normal mood, normal affect. SKIN: Warm, Dry, normal turgor, no rashes or lesions noted. Course - Re-evaluation Re-evalutation: 04/30/18 02:21 Presentation is most consistent with dysfunctional uterine bleeding and otherwise well-appearing patient. Her hemoglobin was effectively within normal limits. She is not . No tachycardia or hypotension. Examination is otherwise unremarkable. She denies bleeding through more than 2 pads an hour at any point in time. No indication for ultrasound at this time based on benign exam, vitals and laboratories. Patient does have a known history of uterine fibroids and has actually been advised to have a hysterectomy by her OB/ FLOOR POLISHER which to this point she has declined. No active bleeding at this time. She is already on hormonal therapy. At this time will discharge with return precautions and follow-up recommendations. Verbal discharge instructions given a the bedside and opportunity for questions given. Medication warnings reviewed. Patient is in agreement with this plan and has verbalized understanding of return precautions and the need for primary care follow-up in the next 24-72 hours. - Vital Signs Vital signs: Temp Pulse Resp BP Pulse Ox 98.4 F 89 16 168/102 H 100 04/30/18 02:41 04/30/18 02:41 04/30/18 02:41 04/30/18 02:41 04/30/18 02:41 - Laboratory Result Diagrams: 04/30/18 01:31 04/30/18 01:31 Laboratory results interpreted by me: 04/30/18 04/30/18 01:31 01:31 Hgb 11.7 L Hct 35.2 L MCH 26.5 L RDW 18.5 H Glucose 117 H Discharge - Discharge Clinical Impression: Dysfunctional uterine hemorrhage Condition: Good Disposition: HOME, SELF-CARE Additional Instructions: You were seen today for dysfunctional uterine bleeding. This is when you have vaginal bleeding and abdominal cramping off of your normal menstrual cycle. Your blood levels are effectively normal today. You need to follow-up with OB/ FLOOR POLISHER or your primary care physician the next 1-3 days. Return immediately if you worsening pain, you began bleeding through more than 2 pads per hour for more than 3 hours, you pass out, have persistent vomiting, develop a fever greater than 100.4F, or any other symptoms that are concerning to you. Referrals: HUGO REYES MD [Primary Care Provider] - Follow up as needed
[2018-04-30 03:12] VITALS: BP 168/102
== END 2018-04-30 03:12 | disposition home or self-care (01) ==
LOC: ER 00:50
DX: N93.8 Other specified abnormal uterine and vaginal bleeding (principal); I10 Essential (primary) hypertension; Z88.6 Allergy status to analgesic agent
CPT/HCPCS: 36415; 80048; 84703; 85027; 99284

== ENCOUNTER 2020-03-27 06:21 | Emergency (ER) | payer SELFPAY ==
[2020-03-27] MEDS ORDERED: LIDOCAINE 2% JELLY 5 ML TUBE TOP ONE (09:17)
[2020-03-27] MEDS ORDERED: LIDOCAINE 2%/EPINEPHRINE INJ 20 ML VIAL INJ ONE (09:18)
[2020-03-27] MEDS ORDERED: HYDROMORPHONE HCL INJ/PF 2 MG/ML AMPULE IM ONE (10:16)
--- NOTE | 2020-03-27 11:01 | RADIOLOGY REPORT (SQ) ---
EXAM DESCRIPTION: CT FACIAL AREA WITHOUT IMAGES COMPLETED DATE/TIME: 03/27/2020 9:56 am REASON FOR STUDY: pain/palatal abscess COMPARISON: 2007 TECHNIQUE: Noncontrasted images through the facial bones and orbits windowed for bone and soft tissu e. Additional coronal and sagittal reconstructed images reviewed. All images stored on PACS. All CT scanners at this facility use dose modulation, iterative reconstruction, and/or weight based d osing when appropriate to reduce radiation dose to as low as reasonably achievable (ALARA). [facility]: Dose Right [facility]: CareDose [facility]: Dose Right [facility]: Teradose 4D [facility]: [employer] RADIATION DOSE: CT Rad equipment meets quality standard of care and radiation dose reduction techniq ues were employed. CTDIvol: 30.4 mGy. DLP: 604 mGy-cm. mGy. LIMITATIONS: None. FINDINGS: FACIAL BONES: No fracture or bone lesion. ORBITS: Intact. No fracture. Symmetric intact globes and retroorbital soft tissues. PARANASAL SINUSES: Clear. No significant mucosal thickening, mass or fluid. No nasal polyps. Maxill palmer sinus outlets are patent. SOFT TISSUES: No mass. No abscess is seen. INFERIOR BRAIN: Limited view. No acute findings. OTHER: No other significant finding. IMPRESSION: NO ACUTE FINDINGS. TECHNICAL DOCUMENTATION: JOB ID: [id number] Quality ID # [id number]: Final reports with documentation of one or more dose reduction techniques (e.g., Au tomated exposure control, adjustment of the mA and/or kV according to patient size, use of iterative reconstruction technique) 2010 [employer]- All Rights Reserved Reading location - IP/workstation name: [email or web address]
--- NOTE | 2020-03-27 11:31 | ER Document Report ---
ED General - General Chief Complaint: Mouth Problem Stated Complaint: POSSIBLE MOUTH INFECTION Time Seen by Provider: 03/27/20 08:51 Primary Care Provider: HUGO REYES MD [Primary Care Provider] - Follow up as needed Mode of Arrival: Ambulatory Information source: Patient TRAVEL OUTSIDE OF THE [place] IN LAST 30 DAYS: No - HPI Notes: Patient presents with pain to the roof of her mouth. She states it is severe. Constant. Is worse if touched. Better if not touched. It does radiate up into her sinuses. She states she is also felt as if she has had some sinus congestion. - Related Data Allergies/Adverse Reactions: hydrocodone bitartrate [From Vicodin] Adverse Reaction (Verified 04/30/18 02:05) palpations ketorolac Adverse Reaction (Verified 04/30/18 02:05) metoclopramide [Metoclopramide] Adverse Reaction (Verified 04/30/18 02:05) Home Medications: aleve, tylenol, canker sore pad, Past Medical History - General Information source: Patient - Social History Smoking Status: Never Smoker Frequency of alcohol use: None Drug Abuse: None Family History: Reviewed & Not Pertinent - Past Medical History Cardiac Medical History: Reports: Hx Hypertension Neurological Medical History: Reports: Hx Migraine Renal/ Medical History: Denies: Hx Peritoneal Dialysis Past Surgical History: Reports: Hx Section - x 3, Hx Orthopedic Surgery - back surgery-rods in back, Hx Tubal Ligation - Immunizations Hx Diphtheria, Pertussis, Tetanus Vaccination: Yes Review of Systems - Review of Systems Constitutional: denies: Chills, Fever Cardiovascular: denies: Chest pain, Palpitations Respiratory: denies: Cough, Short of breath -: Yes All other systems reviewed and negative Physical Exam - Vital signs Vitals: Temp Pulse Resp BP Pulse Ox 98.7 F 106 H 18 184/100 H 99 03/27/20 06:25 03/27/20 06:25 03/27/20 06:25 03/27/20 06:25 03/27/20 06:25 Interpretation: Normal - General General appearance: Appears well, Alert - HEENT Head: Normocephalic, Atraumatic Eyes: Normal Pupils: PERRL Mouth/Lips: Other - Patient have is an obvious tender mass right of midline in the anterior palate - Respiratory Respiratory status: No respiratory distress Chest status: Nontender Breath sounds: Normal Chest palpation: Normal - Cardiovascular Rhythm: Regular Heart sounds: Normal auscultation Murmur: No - Abdominal Inspection: Normal Distension: No distension Bowel sounds: Normal Tenderness: Nontender Organomegaly: No organomegaly - Back Back: Normal, Nontender - Extremities General upper extremity: Normal inspection, Nontender, Normal color, Normal ROM, Normal temperature General lower extremity: Normal inspection, Nontender, Normal color, Normal ROM, Normal temperature, Normal weight bearing. No: Marge's sign - Neurological Neuro grossly intact: Yes Cognition: Normal Orientation: AAOx4 Nasir Coma Scale Eye Opening: Spontaneous Nasir Coma Scale Verbal: Oriented Payne Coma Scale Motor: Obeys Commands Nasir Coma Scale Total: 15 Speech: Normal Motor strength normal: LUE, RUE, LLE, RLE Sensory: Normal - Psychological Associated symptoms: Normal affect, Normal mood - Skin Skin Temperature: Warm Skin Moisture: Dry Skin Color: Normal Course - Vital Signs Vital signs: Temp Pulse Resp BP Pulse Ox 98.7 F 106 H 18 184/100 H 99 03/27/20 06:25 03/27/20 06:25 03/27/20 06:25 03/27/20 06:25 03/27/20 06:25 - Diagnostic Test Radiology reviewed: Image reviewed, Reports reviewed Procedures - Incision and Drainage Face Time completed: 11:29 Type: Simple Anesthetic type: 1% Lidocaine w/epi mL's of anesthetic: 2 Blade size: 11 Incision Method: Incision made by scalpel Amount/type of drainage: About 3 cc of pus and blood Notes: 03/27/20 11:29 Abscess was on the palate Discharge - Discharge Clinical Impression: Abscess of palate Condition: Stable Disposition: HOME, SELF-CARE Instructions: Abscess ([facility]), Oral Narcotic Medication ([facility]), Cephalexin ([facility]) Additional Instructions: Please follow-up with a dentist as soon as possible Prescriptions: Cephalexin Monohydrate [Keflex 500 mg Capsule] 500 mg PO Q6H 5 Days capsule Oxycodone HCl/Acetaminophen [Percocet 5-325 mg Tablet] 1 - 2 tab PO Q4H PRN #15 tablet PRN Reason: Forms: Return to Work Referrals: HUGO REYES MD [Primary Care Provider] - Follow up as needed
[2020-03-27 11:42] VITALS: BP 162/98
== END 2020-03-27 11:43 | disposition home or self-care (01) ==
LOC: ER 06:21
DX: K12.2 Cellulitis and abscess of mouth (principal); R09.81 Nasal congestion; I10 Essential (primary) hypertension; Z88.6 Allergy status to analgesic agent
CPT/HCPCS: 99285; 96372; 70486; 10060; J3490; J1170